=== PATIENT | female | born 1990 | race Caucasian/White ===

== ENCOUNTER 2019-03-14 07:36 | Inpatient (IN) | payer OTHER ==
[~2019-03-14] VITALS: Ht 165.1 cm; Wt 77.7 kg
[2019-03-14] VITALS (52 sets, daily range): BP systolic 112–159; BP diastolic 62–93; PULSE 46–87; TEMP 98.1–98.4
--- NOTE | 2019-03-14 07:45 | NUR ---
Patient to LR6 via wheelchair with spouse, changed into gown, FHR/TOCO monitor placed and explained. Patient states that she had a gush of fluid around 0600 and it was clear with pink tinged. Denies any regular contractions/vaginal bleeding. Plan of care discussed. 0750: SVE-0-1/high and amniotest positive. 0800: Dr. Mejía at nurses station and updated on patient and orders to admit patient. 0805: Dr Mejía at bedside and discusses plan of care. Patient can eat breakfest per physician orders. SVE per physician-fingertip/70/-3 Orders to start pitocin. 0850: IV in left wrist, blood obtained and to lab, LR infusing. Assessment done and consents/ packet gone over and signed.
[2019-03-14] MEDS ORDERED: FINACEA15% TP (08:02)
[2019-03-14] MEDS ORDERED: PRENATAL MVI (08:03)
[2019-03-14 10:07] LABS: BASO % 0.3 % (0.0-2.0); EOS % 0.3 % (0-4.0); GRAN # 4.9 (1.4-6.5); GRAN % 70.2 % (42.2-75.2); HEMOGLOBIN 12.1 g/dl (12.5-16.0); LYMPH # 1.4 (1.2-3.4); LYMPH % 20.4 % (20.0-51.0); MEAN CELL VOLUME 95 fl (80.0-100.0); MEAN CORPUSCULAR HEMOGLOBIN 31 pg (27.0-31.0); MEAN CORPUSCULAR HGB CONC 33 g/dl (33.0-37.0); MEAN PLATELET VOLUME 10.9 fl (7.4-10.4); MONO # 0.5 (0.1-0.6); MONO % 7.8 % (1.7-9.3); PLATELET COUNT 191 K/mm3 (130-400); RED BLOOD COUNT 3.91 M/mm3 (4.10-5.30); REDCELL DISTRIBUTION WIDTH-CV 13.9 % (11.5-14.5)
--- NOTE | 2019-03-14 12:45 | NUR ---
Patient requesting epidural and Izabel Chambers CRNA call and notified. 1300: Dr Mejía at bedside and assessing patient and FHR strip. SVE per physician 1-2//-3. Orders to continue to increase pitocin. 1320: Patient off monitor to void and sits on edge of bed. 1328: Izabel Chambers PAINTLESS DENT REPAIR TECHNICIAN at bedside for procedure and patient sitting on edge of bed. Difficulty tracing FHR due to patient position at this time. 1336: Single shot given and patient tolerates well. 1342: Patient repositioned and saftey precations given and plan of care discussed. 1430: Fang catheter placed and patient tolerates well. SVE-1-2//-2
--- NOTE | 2019-03-14 16:10 | NUR ---
FHR baseline 135-140bpm and decreasing to 90-110bpm for approx. 5 minutes. During this time patient right lateral, LR bolus started, at bedside to assess, patient left lateral with right leg resting in stirrup. Dr. Mejía orders to turn pitocin off. 1615: Pitocin off at this time and SVE-5/90/0 and FHR returning to baseline.
--- NOTE | 2019-03-14 20:45 | NUR ---
2044 SVE /+1, pt spouse out of room at this time, will wait for his return to start pushing.
--- NOTE | 2019-03-14 22:00 | NUR ---
2099 - Pt positioned into footplates. Educated patient on pushing and breathing techniques. Initial push at this time. 2129 - Fang catheter removed, 100 mL clear yellow urine. Recurrent variable decelerations with spontaneous return to baseline with pushes. Pt pushing well with contractions. 2144 - Pt pushing well with contractions, small crown with pushes, pt encouraged to stop pushing at this time. Dr. Mejía called for delivery. 2199 - Dr. Mejía gowned and gloved at perineum. Nursery called to bedside. Spontaneous delivery of viable baby girl. Infant placed on mothers abdomen, dried and stimulated by this RN. Care of infant assumed to JEOVANY Olivares. Pitocin off. 2203 - Spontaneous delivery of intact placenta. Pitocin restarted at 333 mL/hr per protocol. Fundal massage, fundus firm and down [address] Mejía repairing second degree laceration. 2214 - Pericare provided. New chux beneath patient. Ice pack to perineum. recovery started. Call light within reach. See physician delivery note.
[2019-03-15 00:15] VITALS: BP 123/75; PULSE 75
--- NOTE | 2019-03-15 01:00 | NUR ---
Pt able to lift and hold each leg off of bed for 5 seconds. Pt repositioned to sitting on edge of bed. Epidural catheter removed at this time. Tip round, blue, and smooth. Pt able to ambulate to bathroom with 1 person assistance. Pt educated on importance of frequent voiding. Pt unable to void at this time. Pericare explained and provided. Mesh panties, peripad and witch pj pads applied. New gown on. Pt transferred to room 219 by wheelchair.
[2019-03-15 01:15] VITALS: BP 127/65; PULSE 59; TEMP 98.5
[2019-03-15 05:10] VITALS: BP 116/69; PULSE 60; TEMP 98.5
[2019-03-15 08:00] VITALS: BP 122/70; PULSE 79; TEMP 97.9
--- NOTE | 2019-03-15 09:15 | NUR ---
Initial visit; Nurse with patient, [employer] wished patient God's blessings and congratulations for the of her daughter.
[2019-03-15 16:10] VITALS: BP 110/62; PULSE 84; TEMP 98.2
[2019-03-15 20:00] VITALS: BP 117/67; PULSE 71; TEMP 98.1
--- NOTE | 2019-03-16 06:31 | NUR ---
Report received from off going RN, Kirti Perez Care assumed by this RN.
[2019-03-16 06:50] VITALS: BP 1158/78; PULSE 59; TEMP 98.5
[2019-03-16] MEDS ORDERED: IBU600 MG PO (09:44)
== END 2019-03-16 16:15 | disposition home or self-care (01) | DRG 807 ==
LOC: LDRO 07:36 → OB 07:50 → LDR 07:50 → OB 03-15 01:33
PROVIDERS: Obstetrics & Gynecology; ADMIT Student in an Organized Health Care Education/Training Program
PROC: 10E0XZZ Delivery of Products of Conception, External Approach (ICD-10-PCS; principal; 2019-03-14)
PROC: 0KQM0ZZ Repair Perineum Muscle, Open Approach (ICD-10-PCS; 2019-03-14)
DX: O69.81X0 Labor and delivery complicated by cord around neck, without compression, not applicable or unspecified (principal); Z37.0 Single live birth; O70.1 Second degree perineal laceration during delivery; Z3A.38 38 weeks gestation of pregnancy; Z23 Encounter for immunization
CPT/HCPCS: J2540; J2590; J2795; J7120

== ENCOUNTER → 2019-03-20 | Outpatient (CLI) | payer OTHER ==
[~2019-03-20] MED LIST: FINACEA15% TP; IBU600 MG PO; PRENATAL MVI
--- NOTE | 2019-03-20 12:09 | NUR ---
Analy Fernandez into the outpatient clinic with 6 day old Gris for evaluation. Gris's weight was 7#7 oz on 03/14/19. Today's prefeed weight was noted at 7# 2.8 oz (3256 g). While in the hospital, Analy had difficulty getting Gris to latch so she started using a shield and eventually was able to obtain a good latch prior to discharge on 03/16/19. Analy states the weekend went well and feels her milk has come in. Analy reports Gris to be eating atleast 8 times per day and diapers to be WNL. Analy states Gris can be fussy at the breast when she initially latches then she will have more consistant suckling after a couple minutes. discussed that Gris may having a hard time managing a quick let down initially. While in clinic, Gris nursed bilaterally using the breast shield and had a total gain of 90 g/ 3 oz. POC: Work on weaning from breast shield by removing part way through feedings or attempting feeds without. Continue to feed ad evens at least 8 times per day. Anticipate return to clinic.
== END ==
LOC: LAC 10:07
DX: Z39.1 Encounter for care and examination of lactating mother (principal); Z71.89 Other specified counseling